=== PATIENT | female | born 1980 | race Caucasian/White ===

== ENCOUNTER → 2017-12-02 | Outpatient (REF) | payer SELFPAY, OTHER ==
[2017-12-04 14:17] LABS: HPV HYBRID CAPTURE II Negative (Negative)
== END ==
LOC: M SFHCWAGY 09:26
DX: Z12.4 Encounter for screening for malignant neoplasm of cervix (principal)
CPT/HCPCS: G0123

== ENCOUNTER → 2021-05-02 | Outpatient (CLI) | payer OTHER ==
[~2021-05-02] MED LIST: OMEGA-3 1000MG CAPSULE ONE; PROHANCE 279.3MG/ML 15ML VIAL ONE; PROHANCE 279.3MG/ML 5ML VIAL ONE
== END ==
LOC: M PLAIMG 14:11
PROVIDERS: ATTEND Physician Assistant Surgical
DX: R22.41 Localized swelling, mass and lump, right lower limb (principal)
CPT/HCPCS: 73723; A9576

== ENCOUNTER → 2021-06-14 | Outpatient (CLI) | payer OTHER ==
[2021-06-14 13:45] LABS: HEMATOCRIT 40.6 % (36.0-47.0); HEMOGLOBIN 13.8 g/dl (12.0-15.5); MEAN CORPUSCULAR HEMOGLOBIN 31.6 pg (27.0-33.0); MEAN CORPUSCULAR VOLUME 92.9 fl (80.0-96.0); PLATELET COUNT, AUTOMATED 285 10^3/uL (150-450); RED BLOOD COUNT 4.37 10^6/uL (4.00-5.40); WHITE BLOOD COUNT 7.7 10^3/uL (4.0-10.0)
[2021-06-14 14:36] LABS: FREE T4 1.09 NG/DL (0.76-1.46); THYROID STIMULATING HORMONE 0.901 uIU/ML (0.358-3.740)
[2021-06-14 16:10] LABS: HEMOGLOBIN A1c 5.4 %
== END ==
LOC: M PLALAB 09:35
PROVIDERS: ATTEND Advanced Practice Midwife
DX: N92.0 Excessive and frequent menstruation with regular cycle (principal)

== ENCOUNTER → 2021-06-14 | Outpatient (CLI) | payer OTHER | LOC: M PLALAB 09:39 | PROVIDERS: ATTEND Advanced Practice Midwife | DX: Z13.9 Encounter for screening, unspecified (principal); Z80.0 Family history of malignant neoplasm of digestive organs; Z80.8 Family history of malignant neoplasm of other organs or systems ==

== ENCOUNTER → 2021-07-23 | Outpatient (CLI) | payer OTHER | LOC: M WHC 14:31 | PROVIDERS: ATTEND Advanced Practice Midwife | DX: N94.6 Dysmenorrhea, unspecified (principal) ==

== ENCOUNTER → 2022-05-15 | Outpatient (CLI) | payer OTHER | LOC: M WHC 13:53 | PROVIDERS: ATTEND Nurse Practitioner Family | DX: Z12.31 Encounter for screening mammogram for malignant neoplasm of breast (principal) ==

== ENCOUNTER → 2022-06-17 | Outpatient (CLI) | payer OTHER ==
[~2022-06-17] MED LIST changes: +CVS1CAP2 PO; -OMEGA-3 1000MG CAPSULE ONE; -PROHANCE 279.3MG/ML 15ML VIAL ONE; -PROHANCE 279.3MG/ML 5ML VIAL ONE
== END ==
LOC: M LABSMTC 10:42
PROVIDERS: ATTEND Anesthesiology
DX: Z01.812 Encounter for preprocedural laboratory examination (principal); Z11.52 Encounter for screening for COVID-19

== ENCOUNTER 2022-06-21 10:08 | Day surgery (SDC) | payer OTHER ==
[~2022-06-21] VITALS: Ht 162.6 cm; Wt 95.0 kg
[~2022-06-21 10:08] MED LIST changes: +NS 1,000 ML IV ONE
[2022-06-21] MEDS ORDERED: propofoL 200 MG/20 ML VIAL As Ordered ONE (12:46)
[2022-06-21] MEDS ORDERED: LIDOCAINE 2% 100MG/5ML SDV (FOR ANES.) As Ordered ONE (12:46)
[2022-06-21 13:30] VITALS: BP 179/89
== END 2022-06-21 13:46 | disposition home or self-care (01) ==
LOC: M OPP 10:08
PROVIDERS: ATTEND Internal Medicine Gastroenterology
DX: Z12.11 Encounter for screening for malignant neoplasm of colon (principal); Z80.0 Family history of malignant neoplasm of digestive organs; K64.4 Residual hemorrhoidal skin tags; K64.8 Other hemorrhoids; K44.9 Diaphragmatic hernia without obstruction or gangrene; K21.00 Gastro-esophageal reflux disease with esophagitis, without bleeding; K29.70 Gastritis, unspecified, without bleeding; K30 Functional dyspepsia; Z79.899 Other long term (current) drug therapy; Z91.040 Latex allergy status; Z92.84 Personal history of unintended awareness under general anesthesia; Z96.89 Presence of other specified functional implants; Z87.19 Personal history of other diseases of the digestive system; Z80.49 Family history of malignant neoplasm of other genital organs; Z80.41 Family history of malignant neoplasm of ovary; Z80.7 Family history of other malignant neoplasms of lymphoid, hematopoietic and related tissues; Z80.8 Family history of malignant neoplasm of other organs or systems